=== PATIENT | male | born 1970 | race Caucasian/White ===

== ENCOUNTER → 2024-12-19 | Day surgery (SDC) | payer BC ==
[~2024-12-19] MED LIST: ALLEGRA ALLERGY60 MG PO; GLUCAGON FOR INJ 1 MG VIAL ONE; LIDOCAINE HCL 2% LOCAL INJ 5 ML SDV VIAL INJ ONE; MIDAZOLAM HCL 2 MG/2 ML VIAL ONE; NASAL SPRAY30 M1; PEPCID20 MG PO; PROPOFOL IV EMULSION 10 MG/ML 20 ML VIAL ONE
[2024-12-19 12:54] VITALS: TEMP 97.2
[2024-12-19] MEDS: LACTATED RINGER'S 1,000 ML ONE (13:18)
[2024-12-19] MEDS: ONDANSETRON HCL 4 MG ORAL DISINTEGRATING TAB ONE (13:27)
[2024-12-19 13:40] VITALS: BP 118/81; PULSE 90; RESP 16; O2SAT 100
== END | disposition home or self-care (01) ==
LOC: OR 09:34
PROVIDERS: ATTEND Internal Medicine Gastroenterology
DX: Z12.11 Encounter for screening for malignant neoplasm of colon (principal); D12.4 Benign neoplasm of descending colon; D12.3 Benign neoplasm of transverse colon; D12.0 Benign neoplasm of cecum; K63.5 Polyp of colon; K64.1 Second degree hemorrhoids; K57.30 Diverticulosis of large intestine without perforation or abscess without bleeding; Z01.810 Encounter for preprocedural cardiovascular examination; Z79.899 Other long term (current) drug therapy
CPT/HCPCS: 45384; 45385; 93005; J1610; J2003; J2250; J2704; J7121; Q0162